=== PATIENT | female | born 1975 | race Caucasian/White ===

== ENCOUNTER 2022-07-20 12:49 | Outpatient (RCR) | payer OTHER, SELFPAY | END 2022-10-20 23:59 | disposition home or self-care (01) | PROVIDERS: Visit Provider Family Medicine | DX: M75.02 Adhesive capsulitis of left shoulder (principal); M25.512 Pain in left shoulder; M62.81 Muscle weakness (generalized); Z51.89 Encounter for other specified aftercare | CPT/HCPCS: 97110; 97161 ==

== ENCOUNTER 2023-03-23 08:17 | Outpatient (CLI) | payer OTHER, SELFPAY | END 2023-03-23 08:18 | disposition home or self-care (01) | LOC: NFLDREF 03-24 10:38 | PROVIDERS: Visit Provider Obstetrics & Gynecology | DX: Z13.220 Encounter for screening for lipoid disorders (principal); Z13.1 Encounter for screening for diabetes mellitus | CPT/HCPCS: 80061; 82947 ==

== ENCOUNTER 2023-12-26 09:28 | Outpatient (CLI) | payer OTHER, SELFPAY | END 2023-12-26 09:29 | disposition home or self-care (01) | LOC: NFLDREF 09:29 | PROVIDERS: Visit Provider Obstetrics & Gynecology | DX: F32.A Depression, unspecified (principal); Z13.29 Encounter for screening for other suspected endocrine disorder | CPT/HCPCS: 84443 ==